=== PATIENT | female | born 1950 | race Caucasian/White ===

== ENCOUNTER 2018-11-17 13:20 | Emergency (ER) | payer OTHER ==
[~2018-11-17] VITALS: Ht 162.6 cm; Wt 70.3 kg
[~2018-11-17 13:20] MED LIST: ATIVAN1 MG PO; PROTONIX40 M1 PO; SIMVASTATIN40 MG PO
[2018-11-17] MEDS ORDERED: CELEXA20 MG PO (13:25)
[2018-11-17] MEDS ORDERED: ZYRTEC10 M5 PO (13:26)
[2018-11-17] MEDS ORDERED: OMEPRAZOLE20 M2 PO (13:26)
[2018-11-17] MEDS ORDERED: NORCO 5-325 TA1 EAC1 PO (15:31)
[2018-11-17 16:39] VITALS: BP 126/63
== END 2018-11-17 16:41 | disposition home or self-care (01) ==
LOC: M.ERS 13:20
DX: S82.62XA Displaced fracture of lateral malleolus of left fibula, initial encounter for closed fracture (principal); S50.12XA Contusion of left forearm, initial encounter; R10.2 Pelvic and perineal pain; M54.5 Low back pain; E78.00 Pure hypercholesterolemia, unspecified; I10 Essential (primary) hypertension; Z85.3 Personal history of malignant neoplasm of breast; Z88.2 Allergy status to sulfonamides; Z90.10 Acquired absence of unspecified breast and nipple; Z88.1 Allergy status to other antibiotic agents; W10.8XXA Fall (on) (from) other stairs and steps, initial encounter; Y93.89 Activity, other specified; Y92.89 Other specified places as the place of occurrence of the external cause; Y99.8 Other external cause status

== ENCOUNTER 2019-11-27 22:37 | Emergency (ER) | payer OTHER ==
[~2019-11-27] VITALS: Ht 162.6 cm; Wt 74.8 kg
[~2019-11-27 22:37] MED LIST changes: +CELEXA20 MG PO; +NORCO 5-325 TA1 EAC1 PO; +OMEPRAZOLE20 M2 PO; +ZYRTEC10 M5 PO
[2019-11-27 23:40] VITALS: BP 166/87
== END 2019-11-27 23:40 | disposition home or self-care (01) ==
LOC: M.ERS 22:37
DX: S61.211A Laceration without foreign body of left index finger without damage to nail, initial encounter (principal); M81.0 Age-related osteoporosis without current pathological fracture; E78.00 Pure hypercholesterolemia, unspecified; I10 Essential (primary) hypertension; Z79.899 Other long term (current) drug therapy; Z88.2 Allergy status to sulfonamides; Z88.8 Allergy status to other drugs, medicaments and biological substances; W45.8XXA Other foreign body or object entering through skin, initial encounter; Y93.89 Activity, other specified; Y92.89 Other specified places as the place of occurrence of the external cause; Y99.8 Other external cause status